=== PATIENT | female | born 1990 | race Native Hawaiian/Other Pacific Islander ===

== ENCOUNTER 2019-02-17 19:21 | Emergency (ER) | payer OTHER ==
[~2019-02-17] VITALS: Ht 157.5 cm; Wt 145.2 kg
[~2019-02-17 19:21] MED LIST: AZITHROMYCIN 2250 MG PO; MEDROLDOSEPACK PO; NOHOMEMEDICATIONS; PROAIR HFA8.5 GM IH; ROBAXIN500 MG PO; TRAMADOL 50 MG50 MG PO
[2019-02-17 19:57] LABS: INFLUENZA A ANTIGEN Negative (Negative); INFLUENZA B ANTIGEN Negative (Negative)
[2019-02-17] MEDS ORDERED: TESSALON PERLE100 M1 PO (20:22)
[2019-02-17] MEDS ORDERED: PROAIR HFA8.5 GM INH (20:22)
[2019-02-17] MEDS ORDERED: IBU600 MG PO (20:22)
[2019-02-17 20:57] VITALS: BP 144/89
== END 2019-02-17 20:57 | disposition home or self-care (01) ==
LOC: M.ERS 19:21
PROVIDERS: Emergency Medicine
DX: J02.0 Streptococcal pharyngitis (principal)